=== PATIENT | female | born 1975 | race Caucasian/White ===

== ENCOUNTER 2018-10-24 21:44 | Emergency (ER) | payer MEDICAID ==
[~2018-10-24] VITALS: Ht 172.7 cm; Wt 74.8 kg
[2018-10-24] MEDS ORDERED: AZIT250T13 PO (21:53)
[2018-10-24] MEDS ORDERED: BECL8.7A6 IH (21:53)
[2018-10-24] MEDS ORDERED: ALBU8.5H8 IH (21:53)
--- NOTE | 2018-10-24 22:05 | NUR ---
Pt. ambulated into ED w/ c/o flu like symptoms x 2 weeks, pt. reports taking boyfriends azithromycin without seeing an MD or having a prescription written for her, MD at bedside for MSE
[2018-10-24] MEDS ORDERED: IPRATROPIUM BROMIDE 0.5 MG/2.5 ML NEBU NEB ONE (22:15)
[2018-10-24] MEDS ORDERED: predniSONE 10 MG TABLET PO ONE (22:15)
[2018-10-24] MEDS ORDERED: ALBUTEROL SULFATE 2.5 MG/3 ML NEBU NEB ONE (22:15)
[2018-10-24] MEDS ORDERED: predniSONE 20 MG TABLET ONE (22:17)
[2018-10-24] MEDS ORDERED: ALBUTEROL SULFATE 2.5 MG/3 ML NEBU ONE (22:19)
[2018-10-24] MEDS ORDERED: IPRATROPIUM BROMIDE 0.5 MG/2.5 ML NEBU ONE (22:19)
--- NOTE | 2018-10-24 22:25 | NUR ---
RT in w/ pt. for tx,
--- NOTE | 2018-10-24 22:49 | NUR ---
Patient discharged to home in stable conditon. Written and verbal after care instructions given. Patient verbalizes understanding of instructions. Pt. d/c per MD order w/ prescription, d/c papers signed, all belongings w/ pt., ID band removed, ambulated off unit w/ steady gait, NAD
== END 2018-10-24 22:51 | disposition home or self-care (01) ==
LOC: ER 21:47
DX: J20.9 Acute bronchitis, unspecified (principal); J45.909 Unspecified asthma, uncomplicated; Z79.899 Other long term (current) drug therapy; Z79.2 Long term (current) use of antibiotics
CPT/HCPCS: 71045; 94640; 99283; J7512; A4663; J3590

== ENCOUNTER 2018-11-26 21:42 | Emergency (ER) | payer MEDICAID, OTHER ==
[~2018-11-26] VITALS: Ht 172.7 cm; Wt 68.0 kg
[~2018-11-26 21:42] MED LIST: ALBU8.5H8 IH; AZIT250T13 PO; BECL8.7A6 IH
[2018-11-26] MEDS ORDERED: ASPIRIN 81 MG TAB.CHEW PO ONE (22:00)
[2018-11-26] MEDS ORDERED: ASPIRIN 81 MG TAB.CHEW ONE (22:01)
--- NOTE | 2018-11-26 22:01 | NUR ---
Pt ambulates to ER with c/o intermittent chest pain x 2 weeks. Pt states that she her chest pain started ever since her boyfriend has started drinking heavily for the past 2 weeks. States feels anxious. Pt states she has had a panic attack in the past. AAOX4. No N/V/D. EKG done, pt placed on rn faculty. Will ctm.
[2018-11-26 22:20] LABS: BASOPHILS % (AUTO) 0.3 % (0.0-2.0); EOSINOPHILS # (AUTO) 0.2 K/uL (0.0-0.7); EOSINOPHILS % (AUTO) 1.9 % (0.0-7.0); HEMATOCRIT 34.1 % (31.2-41.9); HEMOGLOBIN 11.9 g/dL (10.9-14.3); LYMPHOCYTES # (AUTO) 2.9 K/uL (20.0-40.0); MEAN CORPUSCULAR HEMOGLOBIN 30.1 uug (24.7-32.8); MEAN CORPUSCULAR HGB CONC 35 g/dL (32.3-35.6); MEAN CORPUSCULAR VOLUME 86.2 fL (75.5-95.3); MONOCYTES # (AUTO) 0.8 K/uL (2.0-10.0); MONOCYTES % (AUTO) 9.4 % (0.0-11.0); NEUTROPHILS # (AUTO) 4.5 K/uL (1.8-8.9); NEUTROPHILS % (AUTO) 53.4 % (38.5-71.5); PLATELET COUNT (AUTO) 274 K/uL (179-408); RED BLOOD CELL COUNT(AUTO) 3.95 MIL/uL (3.63-4.92); WHITE BLOOD COUNT (AUTO) 8.4 K/uL (3.8-11.8)
[2018-11-26 22:28] LABS: CREATININE 0.7 mg/dL (0.6-1.3); POTASSIUM 3.7 mmol/L (3.5-5.1)
--- NOTE | 2018-11-26 22:58 | NUR ---
Pt vital signs are stable. No chest pain at this time.
--- NOTE | 2018-11-26 23:29 | NUR ---
Patient discharged to home in stable conditon. Written and verbal after care instructions given. Patient verbalizes understanding of instructions. Pt ambulated out of ER in stable gait. No acute distress noted. Pt states she does not have any chest pain at this time. No other s/s.
[2018-11-26 23:35] VITALS: BP 139/85
== END 2018-11-26 23:35 | disposition home or self-care (01) ==
LOC: ER 21:43
DX: R07.89 Other chest pain (principal); F43.9 Reaction to severe stress, unspecified; J45.909 Unspecified asthma, uncomplicated; Z79.2 Long term (current) use of antibiotics; Z79.899 Other long term (current) drug therapy
CPT/HCPCS: 36415; 70030-TC; 71045; 85025; 93005; A4663

== ENCOUNTER 2019-02-27 19:08 | Emergency (ER) | payer MEDICAID, OTHER ==
[~2019-02-27] VITALS: Ht 172.7 cm; Wt 86.6 kg
--- NOTE | 2019-02-27 20:00 | NUR ---
Dr. Larsen at bedside for MSE.
[2019-02-27] MEDS ORDERED: HYDROMORPHONE 1 MG/1 ML DISP.SYRIN ONE ×2 (20:11→21:31)
[2019-02-27] MEDS ORDERED: ONDANSETRON 4 MG/2 ML VIAL ONE ×2 (20:11→21:32)
[2019-02-27] MEDS ORDERED: HYDROMORPHONE 1 MG/1 ML DISP.SYRIN IM ONE ×2 (20:15→21:30)
[2019-02-27] MEDS ORDERED: ONDANSETRON 4 MG/2 ML VIAL IM ONE ×2 (20:15→21:30)
--- NOTE | 2019-02-27 20:17 | NUR ---
Pt out of ER for CT.
--- NOTE | 2019-02-27 20:35 | NUR ---
Pt back to ER from CT.
--- NOTE | 2019-02-27 22:16 | NUR ---
Patient discharged to home in stable conditon. Written and verbal after care instructions given. Patient verbalizes understanding of instructions. Pt ambulated out of ER with steady gait, no acute signs of distress, VSS, all belongings taken.
[2019-02-27 22:17] VITALS: BP 118/62
== END 2019-02-27 22:18 | disposition home or self-care (01) ==
LOC: ER 19:08
DX: R51 Headache (principal); J45.909 Unspecified asthma, uncomplicated; Z79.2 Long term (current) use of antibiotics; Z79.899 Other long term (current) drug therapy
CPT/HCPCS: 70450; 96372 ×4; 99284; J1170 ×2; J2405 ×2; A4663